=== PATIENT | male | born 1945 | race Caucasian/White ===

== ENCOUNTER → 2017-01-22 | Outpatient (CLI) | payer OTHER ==
[~2017-01-22] MED LIST: ALBU0.08 INH; ALBUAER2 INH; DFL100 PO; DXY100 PO; OMEP40CA PO; RANI300T PO; SYMIN160 INH
--- NOTE | 2017-01-22 14:02 | DIAGNOSTIC IMAGING REPORT ---
PET/CT HISTORY: Sigmoid colon cancer. TECHNIQUE: PET/CT was performed from the base of the skull through the pelvis following the intravenous administration of 9.8 mCi of F18-FDG. Non-contrast CT imaging was performed over the same range without breath-hold for attenuation correction of PET images and anatomic correlation, but not for primary interpretation as it is not of standard diagnostic quality. CT DOSE: COMPARISON: Outside hospital chest CT 10/29/2013. FINDINGS: HEAD AND NECK: There is no FDG-avid disease or significant lymphadenopathy in the imaged portions of the head and the neck. CHEST: There is no pleural or pericardial effusion. Advanced emphysema. There is a 1 cm subpleural nodule within the periphery the right middle lobe on image 88. This was not present on the prior study. There is also a 1 cm nodule within the right lower lobe on image 99 which abuts the minor fissure. Both of these nodules demonstrate abnormal FDG uptake with an SUV max of 3.6. Therefore, this is consistent with metastatic disease. A 2 cm nodular density within the base of the left lower lobe demonstrates intense FDG uptake with an SUV max of 7. This is also consistent with metastatic disease. Focal areas of bilateral hilar FDG uptake likely represent metastatic lymph nodes. These demonstrate an SUV max of 3.5 on the right. Small amount of mucoid material within the distal trachea. ABDOMEN/PELVIS: Multiple FDG avid lesions seen scattered throughout the liver with the largest within the central aspect of the liver measuring 4.2 cm. This demonstrates an SUV max of 7.8. These are consistent with additional sites of metastatic disease. Mild FDG uptake within the midline incision is likely postoperative. There is a 4.2 cm infrarenal abdominal aortic aneurysm. No retroperitoneal or mesenteric lymphadenopathy. Anastomotic suture material seen within the rectosigmoid junction. [id number] degenerative uptake at the anastomotic suture may be postsurgical. Trace presacral fluid. No FDG avid pelvic lymph nodes. MUSCULOSKELETAL: There is no FDG-avid or destructive bone lesion. IMPRESSION: 1. FDG avid pulmonary nodules, hepatic lesions, and bilateral hilar lymph nodes consistent with metastatic disease. 2. A 4.2 cm infrarenal abdominal aortic aneurysm. Electronically signed by: Willam Fraser M.D. 01/22/2017 2:01 PM Dictated Date/Time: 01/22/2017 1:40 PM
== END | disposition home or self-care (01) ==
LOC: C.PET 10:07
PROVIDERS: ATTEND Internal Medicine Hematology & Oncology
DX: C18.7 Malignant neoplasm of sigmoid colon (principal)